=== PATIENT | male | born 1950 | race Caucasian/White ===

== ENCOUNTER → 2018-09-11 | Outpatient (CLI) | payer MEDICARE ==
[~2018-09-11] MED LIST: ACYC5CRE6 TOP; CHOL100058 PO; FUR20 PO; HYDR-385 PO; KET10 PO; MULT1TAB64 PO; PNEU0.5D3 IM; POTA20PA10 PO
[2018-09-11 08:02] LABS: PLATELET COUNT, AUTOMATED 114 K/uL (150-450)
[2018-09-11 08:07] LABS: INR 1.23
[2018-09-11 08:35] LABS: LDL CHOLESTEROL 98 mg/dl
== END ==
LOC: LAB 07:39
PROVIDERS: ATTEND Internal Medicine
DX: Z00.00 Encounter for general adult medical examination without abnormal findings (principal); D69.6 Thrombocytopenia, unspecified; K74.60 Unspecified cirrhosis of liver
CPT/HCPCS: 36415; 81001; 84443; 85025; 85610; G0103; 82040; 82247; 82310; 82374; 82435; 82465; 82565; 82947; 83718; 84075; 84132; 84153; 84155; 84295; 84450; 84460; 84478; 84520

== ENCOUNTER → 2018-09-23 | Outpatient (CLI) | payer MEDICARE ==
--- NOTE | 2018-09-23 10:12 | RADIOLOGY IMAGING REPORT ---
FACILITY: [facility] [place] PATIENT NAME: Scot Farias : 1950 MR: [id number] V: [id number] EXAM DATE: ORDERING PHYSICIAN: YAYO BARNEY TECHNOLOGIST: Location: [facility] Patient: Scot Farias : 1950 Visit/Account:[id number] Date of Sevice: 09/23/2018 LIVER HISTORY: Elevated bilirubin COMPARISON: None. FINDINGS: Gallbladder: There multiple posterior layering gallstones present. The gallbladder wall measures 3 m m in thickness. There is a negative Nova sign by technologist notation. Liver: Negative. Common duct: Normal, four mm diameter. Pancreas: Partially obscured by bowel, visualized aspects unremarkable. Right kidney: Right kidney appears unremarkable measuring 11.7 cm in length Upper abdominal aorta and IVC: Patent. Ascites: None visualized. IMPRESSION: There multiple posterior layering gallstones present. There is no evidence of biliary ductal dilatat ion nor a positive Nova sign. Report Dictated By: Ashlyn Taylor MD at 09/23/2018 10:04 AM Report E-Signed By: Ashlyn Taylor MD at 09/23/2018 10:07 AM WSN:[id number]
== END ==
LOC: US 00:44
PROVIDERS: ATTEND Internal Medicine
DX: R17 Unspecified jaundice (principal); K80.20 Calculus of gallbladder without cholecystitis without obstruction
CPT/HCPCS: 76705